=== PATIENT | female | born 1990 | race Two or more races ===

== ENCOUNTER → 2017-09-07 | Outpatient (CLI) | payer OTHER | LOC: BMCIMAGING 14:14 | PROVIDERS: ATTEND Family Medicine | DX: R22.32 Localized swelling, mass and lump, left upper limb (principal) ==

== ENCOUNTER → 2018-06-20 | Outpatient (CLI) | payer OTHER | LOC: FIMAGING 13:18 | PROVIDERS: ATTEND Specialist | DX: N20.1 Calculus of ureter (principal) ==

== ENCOUNTER 2018-10-30 11:40 | Emergency (ER) | payer OTHER ==
--- NOTE | 2018-10-30 12:06 | EDPHY ---
H & P Stated Complaint: R rib pain, recent surgery Time Seen by Provider: 10/30/18 11:59 HPI/ROS: Chief complaint: Right-sided chest wall pain, recent surgery History of present illness: This is a 28-year-old female who presents to the emergency department for right-sided chest wall pain. At the beginning of October she had a tumor excised from the right side of her chest by Dr. Joni Summers, assisted by Dr. Richey of Neurosurgery who also performed a T7-T8 laminectomy. She has had persistent pain since then. She is currently treating pain at home with hydromorphone. Pain persists. She occasionally has a cough, pain is occasionally worsened by deep breathing. She denies other associated signs or symptoms including no fevers, no persistent dyspnea, no pain or swelling in the legs. Review of systems: A 10 point review of systems was obtained and other than described above was negative - Personal History LMP (Females 10-55): Over 28 Days Ago - Medical/Surgical History Hx Asthma: No Hx Chronic Respiratory Disease: No Hx Diabetes: No Hx Cardiac Disease: No Hx Renal Disease: No Hx Cirrhosis: No Hx Alcoholism: No Hx HIV/AIDS: No Hx Splenectomy or Spleen Trauma: No Other PMH: cyst removal from R side. - Social History Smoking Status: Never smoked - Physical Exam Exam: General Appearance: Alert, no distress. Eyes: Pupils equal and round no pallor or injection. ENT, Mouth: Mucous membranes moist. Respiratory: There are no retractions, lungs are clear to auscultation. Cardiovascular: Regular rate and rhythm. Gastrointestinal: Abdomen is soft and non tender, no masses, bowel sounds normal. Neurological: Alert and oriented x4. Skin: Surgical incisions sites to the back and the right side of the chest wall are healing well. Musculoskeletal: Neck is supple non tender. Extremities are symmetrical, full range of motion. Psychiatric: Patient is oriented X 3, there is no agitation. Constitutional: Initial Vital Signs Temperature (C) 36.9 C 10/30/18 11:59 Heart Rate 94 10/30/18 11:59 Respiratory Rate 18 10/30/18 11:59 Blood Pressure 120/89 H 10/30/18 11:59 O2 Sat (%) 100 10/30/18 11:59 O2 Delivery Mode Room Air Allergies/Adverse Reactions: tramadol Allergy (Verified 10/30/18 11:58) Home Medications: Medication Instructions Recorded Gabapentin [Neurontin 300 MG (*)] 300 mg PO TID #30 cap 10/30/18 HYDROmorphone 10/30/18 Methocarbamol [Robaxin-750] 1,500 mg PO TID 30 Days tablet 10/30/18 Robaxin-750 10/30/18 Medical Decision Making - Diagnostics Imaging Results: Imaging Impressions Chest CT 10/30/18 12:30 Impression: Postsurgical changes of soft tissue mass resection in the right paraspinous region at the level of T8 with laminectomy at T7-T8 and hardware fixation with pedicle screws on the left at T7 and T8. Adjacent focal pleural fluid with a couple foci of air which could be residual air from a resolving hemothorax and less likely infection. Adjacent atelectasis in the right lower lobe. The results were called and discussed with Felice Rodriguez PA-C on 10/30/2018, 14: 41. Results also discussed with Dr. Amado Nolasco. Imaging: Discussed imaging studies w/ call center consultant Radiologist ED Course/Re-evaluation: Patient is seen under the supervision of my secondary supervising physician Dr. Emiliano Flowers. Patient presents with persistent pain post surgery. I consulted with her general surgeon and her neurosurgeon, Dr. Nolasco and Dr. Richey respectively. We have decided to pursue baseline blood studies and a CT of the chest with contrast. At this time we feel that pulmonary embolism is a low risk and opted for CT of the chest with IV contrast as opposed to a CT angiogram. The patient has been seen by both her surgeon and neurosurgeon in the ED. Ultimately they feel that this is postoperative pain. They have recommended she start gabapentin and Robaxin. She is given a prescription for these. She is discharged home. She will follow up with Dr. Nolasco next week. She is given strict return precautions. Differential Diagnosis: Included but not limited to postsurgical pain, postsurgical infection, pulmonary embolism - Data Points Laboratory Results: Laboratory Results 10/30/18 10:51 10/30/18 10:51 10/30/18 10/30/18 10/30/18 12:59 10:51 10:51 WBC RBC Hgb POC Hgb 13.3 gm/dL gm/dL (12.6-16.3) Hct POC Hct 39 % % (38-47) MCV MCH MCHC RDW Plt Count MPV Neut % (Auto) Lymph % (Auto) Harris % (Auto) Eos % (Auto) Baso % (Auto) Nucleat RBC Rel Count Absolute Neuts (auto) Absolute Lymphs (auto) Absolute Monos (auto) Absolute Eos (auto) Absolute Basos (auto) Absolute Nucleated RBC Immature Gran % Immature Gran # POC Sodium 141 mEq/L mEq/L (135-145) Sodium 138 mEq/L mEq/L (135-145) POC Potassium 3.5 mEq/L mEq/L (3.3-5.0) Potassium 3.9 mEq/L mEq/L (3.5-5.2) POC Chloride 103 mEq/L mEq/L (97-110) Chloride 104 mEq/L mEq/L (97-110) Carbon Dioxide 24 mEq/l mEq/l (22-31) Anion Gap 10 mEq/L mEq/L (6-14) POC BUN 8 mg/dL mg/dL (7-23) BUN 11 mg/dL mg/dL (7-23) Creatinine 0.6 mg/dL mg/dL (0.6-1.0) POC Creatinine 0.5 mg/dL L mg/dL (0.6-1.0) Estimated GFR > 60 Glucose 100 mg/dL mg/dL (70-100) POC Glucose 103 mg/dL H mg/dL (70-100) Calcium 9.9 mg/dL mg/dL (8.5-10.4) Beta HCG, Qual NEGATIVE 10/30/18 10:51 WBC 10.79 10^3/uL H 10^3/uL (3.80-9.50) RBC 4.42 10^6/uL 10^6/uL (4.18-5.33) Hgb 11.4 g/dL L g/dL (12.6-16.3) POC Hgb Hct 35.5 % L % (38.0-47.0) POC Hct MCV 80.3 fL L fL (81.5-99.8) MCH 25.8 pg L pg (27.9-34.1) MCHC 32.1 g/dL L g/dL (32.4-36.7) RDW 13.0 % % (11.5-15.2) Plt Count 436 10^3/uL H 10^3/uL (150-400) MPV 9.1 fL fL (8.7-11.7) Neut % (Auto) 47.3 % % (39.3-74.2) Lymph % (Auto) 38.6 % % (15.0-45.0) Harris % (Auto) 5.2 % % (4.5-13.0) Eos % (Auto) 8.0 % H % (0.6-7.6) Baso % (Auto) 0.6 % % (0.3-1.7) Nucleat RBC Rel Count 0.0 % % (0.0-0.2) Absolute Neuts (auto) 5.11 10^3/uL 10^3/uL (1.70-6.50) Absolute Lymphs (auto) 4.16 10^3/uL H 10^3/uL (1.00-3.00) Absolute Monos (auto) 0.56 10^3/uL 10^3/uL (0.30-0.80) Absolute Eos (auto) 0.86 10^3/uL H 10^3/uL (0.03-0.40) Absolute Basos (auto) 0.07 10^3/uL 10^3/uL (0.02-0.10) Absolute Nucleated RBC 0.00 10^3/uL 10^3/uL (0-0.01) Immature Gran % 0.3 % % (0.0-1.1) Immature Gran # 0.03 10^3/uL 10^3/uL (0.00-0.10) POC Sodium Sodium POC Potassium Potassium POC Chloride Chloride Carbon Dioxide Anion Gap POC BUN BUN Creatinine POC Creatinine Estimated GFR Glucose POC Glucose Calcium Beta HCG, Qual Medications Given: Discontinued Medications Gabapentin (Neurontin) 300 mg PO EDNOW ONE Stop: 10/30/18 14:39 Last Admin: 10/30/18 14:55 Dose: 300 mg Methocarbamol 1,000 mg/ Sodium (Chloride) 50 mls @ 200 mls/hr IV EDNOW ONE Stop: 10/30/18 14:52 Last Admin: 10/30/18 15:12 Dose: Not Given Point of Care Test Results: Chemistry 10/30/18 12:59 POC Sodium 141 mEq/L mEq/L (135-145) POC Potassium 3.5 mEq/L mEq/L (3.3-5.0) POC Chloride 103 mEq/L mEq/L (97-110) POC BUN 8 mg/dL mg/dL (7-23) POC Creatinine 0.5 mg/dL L mg/dL (0.6-1.0) POC Glucose 103 mg/dL H mg/dL (70-100) ISTAT H&H 10/30/18 12:59 POC Hgb 13.3 gm/dL gm/dL (12.6-16.3) POC Hct 39 % % (38-47) Departure - Departure Disposition: Home, Routine, Self-Care Clinical Impression: Postoperative pain after spinal surgery Condition: Good Referrals: Amado Nolasco MD [Medical Doctor] - As per Instructions Prescriptions: Gabapentin [Neurontin 300 MG (*)] 300 mg PO TID #30 cap Methocarbamol [Robaxin-750] 1,500 mg PO TID 30 Days tablet
[2018-10-30 13:04] LABS: PLATELET COUNT 436 10^3/uL (150-400)
[2018-10-30] MEDS ORDERED: IOPAMIDOL (ISOVUE-300) 100 ML BTL ONE (13:12)
[2018-10-30] MEDS ORDERED: GABAPENTIN 300 MG CAP PO ONE (14:38)
[2018-10-30] MEDS: METHOCARBAMOL 1,000 MG in NS 50 ML IV ONE ×2 (15:00→15:12)
--- NOTE | 2018-10-30 15:03 | PDCONSULT ---
[employer] Note: Patient well known to myself and Dr. 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 She had post operative pain that was starting to subside last week and she had stopped taking narcotics, until Sunday night when the pain became more severe and she started taking hydromorphone again. She called today with worsening pain and I advised her to come to the ED. She denies fever, chills, abd pain, weakness or paresthesias. She does have an occasional cough with clear to brown sputum. 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) 10/07/18 left ureterolithiasis requiring nephrostomy tube May 2018 non-smoker no EtOH SH: /here with and 2 year old son FH: mother had a thymic tumor requiring resection ROS: pertinent negs per HPI above PE: T 36.9 P 88-100 BP 137/88 R 18 O2sat 99% RA HEENT: no JVD/trachea midline Lungs: diminished at both bases, no wheezing, rales or ronchi CVS: RRR abd: soft and non-tender chest: VATS/T spine incisions healing without signs of infection tender to palpation right costal margin, chest tube sit and para spinous region - no visible swelling CT reviewed with Dr Guerrero: post op changes with few air bubbles in the surgical field, no pneumothorax or significant fluid collection wbc 10.8 Imp: persistent post op pain/otherwise uncomplicated recovery Rec: agree with muscle robaxin and neurontin as recommended by Dr. Richey FU my office next week and prn for T>100.5 discussed findings and recommendations with Stephy and her .
[2018-10-30 15:13] VITALS: BP 125/70
--- NOTE | 2018-10-30 15:31 | GCON ---
DATE OF CONSULTATION: 10/30/2018 REASON FOR CONSULTATION: Thoracic chest wall pain, status post recent surgery, with spasm. HOSPITAL COURSE, HISTORY, AND MAJOR MEDICAL FINDINGS: The patient is a 28-year- old female who called our office earlier today, having worsening pain over her right lateral incision. She recently underwent a posterior T7-T8 laminectomy with fusion and resection of right-sided mass, as well as right-sided thoracic surgery with Dr. Nolasco to remove a right-sided chest wall mass. This was noted at [facility]. Her called our office today with worsening pain over her right side. She has noted that Robaxin does help with this. She denies any pain along her posterior incision. Denies any new fevers, chills, nausea, vomiting, dizziness, any shortness of breath. Pain is worse with movement. PAST MEDICAL HISTORY: Significant for resection of right T7 paraspinal tumor. 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 Left ureterolithiasis, requiring a nephrostomy tube. SOCIAL HISTORY: She is a nonsmoker. She does not drink any alcohol or use illicit drugs. She is in the ER with her and her 2-year-old son. REVIEW OF SYSTEMS: Review of systems is negative, other than what is stated in the HPI. Please see pertinent negatives and pertinent positives. FAMILY HISTORY: Significant for her mom having a thymic tumor. ALLERGIES: Tramadol. HOME MEDICATIONS: Include Dilaudid and Robaxin. PHYSICAL EXAM: VITALS: BP is 137/88. Heart rate is 102. Respirations are 18. She is 99% on room air. Temp is 36.9. GENERAL: The patient is in no acute distress. She is alert and oriented x3. She answers questions appropriately. Affect is appropriate to the given situation. NEUROLOGIC: Cranial nerves 2-12 are grossly intact. EOMI and PERRLA. 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 Sensation is intact in bilateral upper and bilateral lower extremities. Her incisions are well healed. There is some Dermabond present on her posterior incision. DISCUSSION AND DECISION-MAKING: The patient is a 28-year-old female who is having worsening pain over her lateral chest wall incision from her T7 hemangioma resection. Dr. Nolasco will be seeing the patient as well, and they will be getting a chest CT to further rule out any etiology for this worsening pain. I did discuss with the patient normal nerve healing and muscle healing and how things can wax and wane postoperatively. She was seen by Dr. Richey and myself in the emergency room. We have recommended Robaxin 1000 mg IV, as well as gabapentin 300 mg. The patient will require followup with us in approximately 1 month so we can continue to follow her fusion. There are no apparent complications at this time. /[id number]/MODL MTDD
== END 2018-10-30 15:15 | disposition home or self-care (01) ==
DX: R07.89 Other chest pain (principal); G89.18 Other acute postprocedural pain
CPT/HCPCS: 82435-PO; 82565-PO; 82947-PO; 84132-PO; 84295-PO; 84520-PO; 85014-PO; J2800; Q9967

== ENCOUNTER → 2018-12-12 | Outpatient (CLI) | payer OTHER | LOC: FIMAGING 11:30 | PROVIDERS: ATTEND Nurse Practitioner | DX: D35.6 Benign neoplasm of aortic body and other paraganglia (principal); Z48.3 Aftercare following surgery for neoplasm ==

== ENCOUNTER → 2019-01-20 | Outpatient (CLI) | payer OTHER | LOC: FIMAGING 15:28 | PROVIDERS: ATTEND Nurse Practitioner | DX: D44.7 Neoplasm of uncertain behavior of aortic body and other paraganglia (principal) ==